=== PATIENT | female | born 1990 | race Caucasian/White ===

== ENCOUNTER 2017-03-11 09:22 | Inpatient (IN) | payer OTHER ==
[2017-03-11] VITALS (8 sets, daily range): BP systolic 105–145; BP diastolic 64–91; PULSE 40–48; RESP 18–20; TEMP 98–98.2
--- NOTE | 2017-03-11 10:05 | PD ---
HPI Chief Complaint Contractions Date Seen: Mar 11, 2017 Time Seen: 10:00 (Tommie Wade MD R1) Travel History International Travel<30 Days: No Contact w/Intl Traveler<30Days: No Known Affected Area: No (Tommie Wade MD R1) History of Present Illness HPI Patient is a 26-year-old at 37 weeks and 3 days who presents with contractions. She reports that she first started having irregular contractions last night every couple of hours. She reports that she was having contractions about every 10 minutes this morning. She denied any vaginal bleeding, leakage of fluid. She reports movement. Patient [facility] care through [facility]. Per her records, she is GBS negative. Of note, patient plans to give this child up for adoption. Para: 2 : 5 (Tommie Wade MD R1) History Past Medical History Narrative Medical History of UTI IVDU Possible Hepatitis C per EMR review Tetanus Vaccination: Unknown labs negative, including GBS (Tommie Wade MD R1) Obstetric History Obstetric History : 4, 3 terminations of Dilation and Curettage (D&C) Patient reports that her son was delivered at 36 weeks and her other child that she gave up for adoption was born at 37 and 38 weeks. (Tommie Wade MD R1) Past Surgical History Narrative Surgical Cholecystectomy: Yes (03/2009) Oral Surgery: Yes (WISDOM TEETH) (Tommie Wade MD R1) Family History Family History: Negative (Tommie Wade MD R1) Social History Narrative Social History Alcohol Use: No Tobacco Use: Yes (smokes a half a pack of cigarettes per day) Substance Use: HISTORY OF IV DRUG USE, last used 2 weeks ago. 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 Alcohol Use: No Tobacco Use: Yes Substance Abuse: Yes (Tommie Wade MD R1) Allergies-Medications (Allergen,Severity, Reaction): Coded Allergies: No Known Allergies (Verified , 03/09/17) Home Meds No Active Prescriptions or Reported Meds Review of Systems ROS Limitations: Clinical Condition (patient too uncomfortable to answer) ( Tommie Wade MD R1) Physical Exam Blood pressure 130s 140s over 70s to 90s, pulse 40, respiratory rate 18, temperature 98.0 Narrative GENERAL: Well-nourished, well-developed obese female patient who is diaphoretic and uncomfortable with contractions. SKIN: Warm and dry. HEAD: Normocephalic and atraumatic. EYES: No scleral icterus. No injection or drainage. ENT: No nasal drainage noted. Mucous membranes pink. Airway patent. NECK: Supple, trachea midline. No JVD. CARDIOVASCULAR: Regular rate and rhythm without murmurs, gallops, or rubs. RESPIRATORY: Breath sounds equal bilaterally. No accessory muscle use. ABDOMEN/GI: Abdomen soft, non-tender, bowel sounds present, no rebound, no guarding Gravid to 37 weeks size GENITOURINARY: External Genitalia: intact and normal in appearance Dilatation: 9-10 Effacement: 100% Station: 0 Presentation: Vertex Membranes: Intact Uterine Contractions: q 5 minutes FHT's: Category: Category Baseline: 140 Reactive: Reactive Variability: moderate Decels: Frequent variables EXTREMITIES: No cyanosis or edema. BACK: Nontender without obvious deformity. No CVA tenderness. NEUROLOGICAL: Awake and alert. Motor and sensory grossly within normal limits. Five out of 5 muscle strength in all muscle groups. Normal speech. (Tommie Wade MD R1) Data Data Vital Signs Reviewed: Yes Orders Ob (2e) Additional Admit Info (03/11/17 09:57) (Tommie Wade MD R1) MDM Plan Patient is a 26-year-old at 37 weeks and 3 days who presents with contractions. Patient had care through [facility]. Per her records, she is GBS negative. Of note, patient plans to give this child up for adoption. 1. active labor - patient presents diaphoretic and uncomfortable with contractions about every 5 minutes. Cervical exam is 9-10 cm dilated, 100% effaced, and 0 station. Admit for labor Monitor vital signs Monitor heart rate Nothing by mouth LR IV at 125 mL per hour Lidocaine, Bicitra, fentanyl IV GBS negative CBC, hold clot, ABO/Rh blood type, type and screen, UA 2. History of IVDU UDS Patient seen and discussed with Dr. Corrigan (Tommie Wade MD R1) Scripts No Active Prescriptions or Reported Meds Attestation Patient seen and evaluated with resident under direct supervision, agree with assessment and plan. (Noe Corrigan MD) Tommie Wade MD R1 Mar 11, 2017 10:05 Noe Corrigan MD Mar 11, 2017 16:24
[2017-03-11] MEDS ORDERED: LACTATED RINGER'S 1000 ML INJ 1,000 ML IV PRN (10:06)
[2017-03-11] MEDS ORDERED: LACTATED RINGER'S 1000 ML INJ 1,000 ML IV SCH (10:06)
[2017-03-11] MEDS ORDERED: SODIUM CHLORID 0.9% 500 ML INJ 500 ML IV PRN (10:15)
[2017-03-11] MEDS ORDERED: MINERAL OIL 10 ML VIAL TOPICAL PRN (10:15)
[2017-03-11] MEDS ORDERED: LIDOCAINE HCL 1% 50 ML VIAL INFIL PRN (10:15)
[2017-03-11] MEDS ORDERED: OXYTOCIN 30 UNITS-500ML PREMIX 500 ML IV ONE (10:15)
[2017-03-11] MEDS ORDERED: CITRIC ACID-SODIUM CITRATE LIQ 30 ML UDC PO SCH (10:15)
[2017-03-11] MEDS ORDERED: LIDOCAINE HCL 1% 50 ML VIAL I-DERMAL PRN (10:15)
[2017-03-11] MEDS ORDERED: SODIUM CHLOR 0.9% 1000 ML INJ 1,000 ML IV PRN (10:26)
--- NOTE | 2017-03-11 10:53 | PD.OB.DELI ---
Delivery Date: Mar 11, 2017 Anesthesia: None Episiotomy: None Vaginal Delivery: Normal, Spontaneous Presentation: Vertex Nuchal Cord: None Delayed cord clamping (45 sec): Yes : Female One Minute : 8 Five Minute : 9 Weight: 2315g Placenta: Spontaneous delivery, Intact, 3 vessel cord Laceration: No lacerations Estimated blood loss: 300mL Additional Information Patient presented to OB triage; she was 9-10 cm dilated at that time. (Cecilia Mays MD R1) Attestation Patient seen and evaluated with resident under direct supervision,I was present for this delivery . (Noe Corrigan MD) Cecilia Mays MD R1 Mar 11, 2017 10:53 Noe Corrigan MD Mar 11, 2017 16:18
[2017-03-11] MEDS ORDERED: OXYTOCIN 30 UNITS-500ML PREMIX 500 ML IV SCH (11:00)
[2017-03-11] MEDS ORDERED: ZOLPIDEM TARTRATE 5 MG TAB PO PRN (11:00)
[2017-03-11] MEDS ORDERED: ACETAMINOPHEN 325 MG TAB PO PRN (11:00)
[2017-03-11] MEDS ORDERED: IBUPROFEN 600 MG TAB PO PRN (11:00)
[2017-03-11] MEDS ORDERED: oxyCODONE/ACETAMINOPHEN 5 MG/325 MG TAB PO PRN (11:00)
[2017-03-11] MEDS ORDERED: ONDANSETRON ODT 4 MG TAB PO PRN (11:00)
[2017-03-11] MEDS ORDERED: BENZOCAINE 20% TOPICAL SPRAY 60 ML CAN TOPICAL PRN (11:00)
[2017-03-11] MEDS ORDERED: SODIUM CHLORIDE 0.9% FLUSH 10 ML FLUSH IV FLUSH PRN (11:00)
[2017-03-11] MEDS ORDERED: WITCH HAZEL 50%/GLYCERIN 12.5% 40 PAD JAR TOPICAL PRN (11:00)
[2017-03-11] MEDS ORDERED: SODIUM CHLORIDE 0.9% FLUSH 10 ML FLUSH IV FLUSH SCH (11:00)
[2017-03-11] MEDS ORDERED: ALUMINUM/MAGNESIUM/SIMETH 30 ML CUP PO PRN (11:00)
[2017-03-11] MEDS ORDERED: DOCUSATE SODIUM 50 MG/SENNA 8.6 MG TAB PO PRN (11:00)
[2017-03-11 11:10] LABS: AUTOMATED NEUTROPHIL # 9.2 TH/MM3 (1.8-7.7); BASOPHIL % 0.2 % (0.0-2.0); EOSINOPHIL # 0.2 TH/MM3 (0-0.4); EOSINOPHIL % 1.4 % (0.0-4.0); HEMO FLAGS DIFF FINAL; LYMPH % 21.1 % (9.0-44.0); LYMPHOCYTE # 2.7 TH/MM3 (1.0-4.8); MEAN CELL VOLUME 85.5 FL (80.0-100.0); MEAN CORPUSCULAR HEMOGLOBIN 28.6 PG (27.0-34.0); MEAN CORPUSCULAR HGB CONC 33.4 % (32.0-36.0); MONO % 6.4 % (0.0-8.0); NEUT % 70.9 % (16.0-70.0); PLATELET COUNT 175 TH/MM3 (150-450); RED BLOOD COUNT 3.74 MIL/MM3 (4.00-5.30); RED CELL DISTRIBUTION WIDTH 13.9 % (11.6-17.2)
[2017-03-11] MEDS: oxyCODONE/ACETAMINOPHEN 5 MG/325 MG TAB PO PRN ×2 (11:20→18:25)
[2017-03-11 11:23] LABS: BACTERIA, URINE OCC /hpf; BLOOD, URINE MOD (NEG); CALCIUM OXALATE CRYSTALS,URINE OCC /hpf; COMMENT (UR) CULTURE INDICATED; CULTURE IF INDICATED CULTURE INDICATED; GLUCOSE,URINE NEG (NEG); KETONE, URINE NEG (NEG); MUCUS URINE FEW /lpf (OCC); NITRITE,URINE NEG (NEG); PH, URINE 6.5 (5.0-8.5); SQUAMOUS EPITHELIAL CELL URINE 8 /hpf (0-5); URINE COLOR YELLOW (YELLW/STRAW)
[2017-03-11 12:53] LABS: AMPHETAMINE, URINE NEG (NEG); BARBITURATES, URINE NEG (NEG); COCAINE, URINE NEG (NEG)
[2017-03-11] MEDS ORDERED: MEASLES, MUMPS, RUBELLA VACCINE 0.5 ML VIAL SQ ONE (16:00)
[2017-03-11] MEDS ORDERED: DIPHTH/TETANUS/ACEL PERTUSSIS (BOOSTER) 0.5 ML VIAL/PFS IM ONE (16:00)
[2017-03-11] MEDS ORDERED: NITROFURANTOIN MONOHYD MACROCR 100 MG CAP PO SCH (18:00)
[2017-03-12 07:50] VITALS: BP 121/77; PULSE 54; RESP 16; TEMP 98.2
[2017-03-12] MEDS ORDERED: ORTH0.35 PO (09:22)
--- NOTE | 2017-03-12 09:22 | HHI.OB ---
Subjective Post Day: 1 Remarks Patient is a 26-year-old delivered at 37 weeks and 3 days. Patient is day 1 after . Patient's pain is well-controlled. Patient reports eating and drinking without any nausea or vomiting. Patient reports minimal bleeding. Patient has passed gas and bowel movements. Patient is walking without lower extremity pain or shortness of breath. Patient reports desire for contraception with OCPs until she can get her tubal ligation. She denies any feelings of depression. (Tommie Wade MD R1) Remarks Patient seen and evaluated with resident under direct supervision, agree with assessment and plan. (Noe Corrigan MD) Objective Vitals/I&O Vital Signs Date Time Temp Pulse Resp B/P Pulse Ox O2 Delivery O2 Flow Rate FiO2 03/12/17 07:50 98.2 54 16 121/77 03/11/17 20:04 20 121/77 03/11/17 20:04 98.2 03/11/17 13:25 98.0 03/11/17 13:25 48 18 105/68 03/11/17 11:46 45 145/75 03/11/17 11:21 40 133/64 03/11/17 11:06 43 136/75 03/11/17 11:05 98.0 03/11/17 10:45 18 03/11/17 10:43 47 144/91 Objective Remarks GENERAL: Well-nourished, well-developed patient. CARDIOVASCULAR: Regular rate and rhythm without murmurs, gallops, or rubs. RESPIRATORY: Breath sounds equal bilaterally. No accessory muscle use. ABDOMEN/GI: Abdomen soft, non-tender. Fundus: Firm, non-tender at umbilicus. GENITOURINARY: Light bleeding. EXTREMITIES: No cyanosis or edema, non-tender, without signs of DVT. Medications and IVs Current Medications Medications (Trade) Dose Ordered Sig/Vashti Route Start Time Stop Time Status Last Admin Lactated Ringer's 1,000 ml @ 125 mls/hr Q8H IV 03/11/17 10:06 03/11/17 10:56 Lactated Ringer's 1,000 ml @ 3,000 mls/hr Q20M PRN IV 03/11/17 10:06 Sodium Chloride 500 ml @ 1,000 mls/hr ONCE PRN IV 03/11/17 10:15 03/12/17 10:14 (NS 1000 ml Inj) 1,000 ml @ 100 mls/hr Q10H PRN IV 03/11/17 10:26 (Muri-Lube Oil) 10 ml UNSCH PRN TOPICAL 03/11/17 10:15 (NS Flush) 2 ml BID IV FLUSH 03/11/17 11:00 (NS Flush) 2 ml UNSCH PRN IV FLUSH 03/11/17 11:00 (Tylenol) 650 mg Q4H PRN PO 03/11/17 11:00 (Motrin) 600 mg Q6H PRN PO 03/11/17 11:00 (Percocet 5-325 Mg) 1 tab Q4H PRN PO 03/11/17 11:00 (Percocet 5-325 Mg) 2 tab Q4H PRN PO 03/11/17 11:00 03/11/17 18:25 (Americaine 20% Top Spr) 1 spray Q4H PRN TOPICAL 03/11/17 11:00 (Tucks Pads) 1 applic QID PRN TOPICAL 03/11/17 11:00 (Eliza-Colace) 2 tab Q12H PRN PO 03/11/17 11:00 (Ambien) 5 mg HS PRN PO 03/11/17 11:00 (Mag-Al Plus Susp Liq) 15 ml Q8H PRN PO 03/11/17 11:00 (Zofran Odt) 4 mg Q6H PRN PO 03/11/17 11:00 (Macrobid) 100 mg BIDPC PO 03/11/17 18:00 (Tommie Wade MD R1) Assessment/Plan Problem List: (1) (spontaneous vaginal delivery) (2) (normal spontaneous vaginal delivery) Assessment and Plan Patient is a 26-year-old delivered at 37 weeks and 3 days. Patient is day 1 after . Patient was counseled to do 6 weeks of pelvic rest. Patient was counseled to follow up in 6 weeks. Patient requested follow-up and contraception oral contraceptive pills. --AF VSS --Continue routine care --Motrin and Percocet when necessary for pain --Encourage OOB --Pelvic rest for 6 weeks will need follow-up appointment at that time. --Contraception: OCPs --Anticipate discharge tomorrow Discharge Planning Anticipate discharge tomorrow. (Tommie Wade MD R1) Tommie Wade MD R1 Mar 12, 2017 09:22 Noe Corrigan MD Mar 12, 2017 09:50
--- NOTE | 2017-03-12 12:30 | HHI.DCPOC ---
Discharge Care Plan Diagnosis: (1) (spontaneous vaginal delivery) Report Symptoms to Your Doctor -Temperature above 100.5 degrees -Redness, of incision or excessive or foul smelling drainage -Unusual pain or calf pain -Increased vaginal bleeding -Painful or difficulty urinating -Feelings of extreme sadness or anxiety after 2 weeks Goals to Promote Your Health * To prevent worsening of your condition and complications * To maintain your health at the optimal level Directions to Meet Your Goals Take your medications as prescribed Follow your dietary instruction Follow activity as directed Ensure plenty of rest for recovery Drink fluids for hydration Keep your appointments as scheduled Take your immunizations and boosters as scheduled If your symptoms worsen call your PCP, if no PCP go to Urgent Care Center or Emergency Room Smoking is Dangerous to Your Health. Avoid second hand smoke Call the 24-hour crisis hotline for domestic abuse at [place] Portillo MD Mar 12, 2017 12:30
[2017-03-15 14:10] LABS: HYDROMORPHONE U POS (NEG)
[2017-03-15 14:17] LABS: OBMETHADONE UR NEG (NEG); PHENCYCLIDINE URINE NEG (NEG)
[2017-03-15 14:18] LABS: BATH SALTS (MDPV) UR NEG (NEG); ECSTASY (MDMA) UR NEG (NEG); GABAPENTIN UR NEG (NEG); HEROIN (6-ACETYLMORPHINE) UR NEG (NEG); K2 SPICE UR NEG (NEG); OXYCODONE (PERCODAN) NEG (NEG)
== END 2017-03-12 12:40 | disposition home or self-care (01) | DRG 774 ==
LOC: HOBED 09:22 → H2EA 10:09 → H1EA 12:55
PROVIDERS: ADMIT Obstetrics & Gynecology Maternal & Fetal Medicine; ATTEND Obstetrics & Gynecology Maternal & Fetal Medicine
PROC: 10E0XZZ Delivery of Products of Conception, External Approach (ICD-10-PCS; principal; 2017-03-11)
DX: O99.324 Drug use complicating childbirth (principal); O75.3 Other infection during labor; O99.334 Smoking (tobacco) complicating childbirth; F11.90 Opioid use, unspecified, uncomplicated; F17.210 Nicotine dependence, cigarettes, uncomplicated; Z37.0 Single live birth; Z3A.37 37 weeks gestation of pregnancy
CPT/HCPCS: 80307; 81001; 85025; 86850; 86900; 86901; 87086; 90715; G0481; J2590; J7120

== ENCOUNTER 2017-04-28 14:10 | Emergency (ER) | payer OTHER ==
[~2017-04-28] VITALS: Ht 167.6 cm; Wt 95.0 kg
[~2017-04-28 14:10] MED LIST: ORTHTAB4 PO
[2017-04-28 14:12] VITALS: BP 135/85; PULSE 58; RESP 20; TEMP 98; O2SAT 99
[2017-04-28] MEDS ORDERED: NAPR500 PO (15:02)
--- NOTE | 2017-04-28 15:07 | PD ---
HPI Chief Complaint: Pain: Acute or Chronic Time Seen by Provider: 15:01 Travel History International Travel<30 days: No Contact w/Intl Traveler<30days: No Traveled to known affect area: No History of Present Illness HPI Patient comes in complaining of left knee swelling ongoing for 2 weeks. Patient states that this happens from time to time since she had surgery done several years ago and it usually goes away with rest. Patient states that the swelling is not getting any better. Patient has occasional pain with this that she's been taking Tylenol. Denies any radiation of the pain. Patient denies anything making it worse. Denies any trauma or . PFSH Past Medical History Genitourinary: Yes (UTI) Hepatitis: Yes (HEP C) ?: Not LMP: 04/21/17 : 5 Para: 0 Miscarriage: 0 : 4 Dilation and Curettage (D&C): Yes Past Surgical History Cholecystectomy: Yes (03/2009) Oral Surgery: Yes (WISDOM TEETH) Social History Alcohol Use: No Tobacco Use: Yes Substance Use: No (HISTORY OF IV DRUG USE, STOPPED 2007; marijuana 09/09) Allergies-Medications (Allergen,Severity, Reaction): Coded Allergies: No Known Allergies (Verified , 04/28/17) Reported Meds & Prescriptions Reported Meds & Active Scripts Active Naprosyn (Naproxen) 500 Mg Tab 500 Mg PO Q12HR PRN Review of Systems Except as stated in HPI: all other systems reviewed are Neg Physical Exam Narrative GENERAL: Well-developed, overly nourished, in no acute distress, and non-ill appearing. SKIN: Focused skin assessment warm and dry. HEAD: Atraumatic. Normocephalic. EYES: Pupils equal and round. EOMI. No scleral icterus. No injection or drainage. ENT: No nasal bleeding or discharge. Mucous membranes pink and moist. NECK: Trachea midline. Supple. No nuclear rigidity. RESPIRATORY: No accessory muscle use. No respiratory distress. MUSCULOSKELETAL: No obvious deformities. No clubbing. No cyanosis. No edema. Full range of motion. Knee: Negative patellar apprehension, varus and valgus maneuvers, anterior draw test, and Rolly test. FROM distal to injury and equal BL. Strength distal to injury equal BL. NV intact distal to injury. Dorsal pulses equal BL. Sensation equal BL 1st web space. Small fluid collection left knee medial aspect. There is no crepitus, erythematous, or other signs of infection. NEUROLOGICAL: Awake and alert. No obvious cranial nerve deficits. Motor grossly within normal limits. Normal speech. PSYCHIATRIC: Appropriate mood and affect; insight and judgment normal. Data Data Last Documented VS Vital Signs Date Time Temp Pulse Resp B/P (MAP) Pulse Ox O2 Delivery O2 Flow Rate FiO2 04/28/17 14:12 98.0 58 20 135/85 (102) 99 Room Air Orders Orders Splint Or Brace Apply/Monitor (04/28/17 15:01) MDM Medical Decision Making Medical Screen Exam Complete: Yes Emergency Medical Condition: Yes Differential Diagnosis Bursitis, effusion, infectious bursitis, gout, pseudogout, other Narrative Course There is no evidence to suggest infectious bursitis at this time. There is no trauma to suspect contusion, strain, or fracture. There is no clinical evidence to suggest gout or pseudogout, osteoarthritis, Rheumatoid arthritis, or septic arthritis. There is also no evidence to suggest tendonitis. The patient was placed in an Lukasz wrap and started on NSAID medication. The patient was instructed on ice packs as well. The patient was instructed to follow up with orthopedics for possible drainage versus injections. The patient agreed with plan. Patient in no obvious distress upon re-evaluation. Patient was asked if they wanted to speak to my attending, which the patient did not wish to do at this time. Any questions/concerns in reference to patient diagnosis/condition discussed and clarified prior to patient's discharge. Reinforced sheer importance of close follow up with patient's primary physician or primary care clinic. Instructed patient to return to ED immediately, if symptoms return/ worsen. Pt showed understanding of above instructions. Further instructions and recommendations were detailed in discharge paperwork. Pt ambulated without difficulty out of ED at discharge. Diagnosis Primary Impression: Knee effusion, left Referrals: Hayden Davila MD Patient Instructions: General Instructions, Swollen Knee Joint (ED) Additional Instructions: Follow-up with your primary care physician and/or orthopedics next week for reevaluation. Take all medication as prescribed. Wear Lukasz wrap for comfort and treatment. Apply ice to affected area 20 minutes per hour his needed for pain and swelling. Return to the emergency department if symptoms get worse. Med/Other Pt SpecificInfo: Prescription(s) given Scripts Naproxen (Naprosyn) 500 Mg Tab 500 MG PO Q12HR Y for PAIN SCALE 1 TO 10, #14 TAB 0 Refills Prov: Nita Catalan MD 04/28/17 Disposition: 01 DISCHARGE HOME Condition: Stable Rashel Ding Apr 28, 2017 15:07
== END 2017-04-28 15:29 | disposition home or self-care (01) ==
LOC: EDTENT 14:10
DX: M25.462 Effusion, left knee (principal); B19.20 Unspecified viral hepatitis C without hepatic coma; Z72.0 Tobacco use
CPT/HCPCS: 99283

== ENCOUNTER → 2017-05-13 | Day surgery (SDC) | payer OTHER ==
--- NOTE | 2017-05-11 16:18 | MH ---
cc: PHYLLIS TALLEY MD, SUE GREENBLUM, JESSE S. MD DATE OF 1990 DATE OF ADMISSION: 05/13/2017 ADMITTING DIAGNOSIS: Scheduled for admission on 05/13 for laparoscopic salpingectomy / tubal ligation. HISTORY: The patient's is a 27-year-old white female 3, para 3 who has completed childbearing and wants to proceed with surgical sterilization. PAST MEDICAL HISTORY: The patient's medical history depression. Otherwise negative for heart, lung, liver disease, hypertension, diabetes, stroke. PAST SURGICAL HISTORY Laparoscopic cholecystectomy. OBSTETRICAL HISTORY Three vaginal deliveries. GYNECOLOGIC HISTORY No STDs or abnormal Pap smears. SOCIAL HISTORY Smokes a pack a day. No alcohol or drugs. FAMILY HISTORY Noncontributory MEDICATIONS Oral contraceptive daily ALLERGIES None REVIEW OF SYSTEMS No chest pain, orthopnea, PND, nausea, fever, chills. No vaginal bleeding or discharge. No change in bladder, bowel habits. Remainder of 14-point review negative. PHYSICAL EXAMINATION: VITAL SIGNS: On exam afebrile signs stable blood pressure is 120/76 05/06 weight 212, BMI is 34. IN GENERAL: Patient is alert and oriented, no acute distress no sign of cognitive function depression. HEAD, EYES, EARS, NOSE, AND THROAT: Within normal limits. NECK: The neck is supple. No jugular venous distention. CHEST: The chest is clear. HEART: Regular rate and rhythm. ABDOMEN: The abdomen is soft, nontender, no hepatosplenomegaly. No CVA tenderness. PELVIC: The pelvic exam will be detailed under anesthesia. EXTREMITIES: Normal skin, no rashes and nonfocal. No deep venous thrombosis signs. ASSESSMENT Patient with multiparity desires sterilization. DISCUSSION: Discussed options for management treatment. She is aware of the risks returns procedure including damage to surrounding organs, bleeding, infection, failure rate of up to 1:200. The irreversibility procedure, infertility following procedure. Operative risks, pelvic pain and other issues germane to procedure. PLAN: Patient has made informed choice to proceed her Medicaid tubal consent form was signed on March 28. We anticipate outpatient procedure. She needs DVT prophylaxis with sequential compression device and antibiotic prophylaxis Ancef 2 grams. MD MASOUD Panda/shayne /1:56 PM /4:09 PM
[~2017-05-13] VITALS: Ht 167.6 cm; Wt 101.6 kg
[~2017-05-13] MED LIST changes: +*MEPERIDINE 25 MG INJ VIAL PERIprocedural Use ONLY ONE; +*morphine SULFATE 8 MG/ML PERIprocedure ONLY ONE; +ACETAMINOPHEN 1000 MG/100 ML 0 ML IV ONE; +ACETAMINOPHEN 1000 MG/100 ML 100 ML IV ONE; +CHLORHEXIDINE GLUCONATE 2 % 1 PACK (2 CLOTHS) TOPICAL PRN; +DEXAMETHASONE SOD PHOS 4 MG/ML VIAL IV ONE; +DEXAMETHASONE SOD PHOS 4 MG/ML VIAL ONE; +DO NOT ADM ANY ANTICOAGULANT DRUGS PRN; +FAMOTIDINE 20 MG/2 ML VIAL ONE; +INSULIN HUMAN REGULAR 1,000 UNITS/10 ML VIAL SQ PRN; +KETOROLAC TROMETHAMINE 30 MG/ML (IVP) VIAL IV PUSH ONE; +KETOROLAC TROMETHAMINE 30 MG/ML (IVP) VIAL IV PUSH PRN; +KETOROLAC TROMETHAMINE 60 MG/2 ML (IM) VIAL IM PRN; +LACTATED RINGER'S 1000 ML IV PRN; +LIDOCAINE 0.5%/EPINEPHrine 1:200,000 SOLN 50 ML VIAL ONE; +LIDOCAINE HCL 1% PF 5 ML AMPULE OTHER ONE; +METOPROLOL TARTRATE 25 MG TAB PO PRN; +MIDAZOLAM HCL 2 MG/2 ML VIAL IV ONE; +MIDAZOLAM HCL 2 MG/2 ML VIAL ONE; +NAPR500 PO; +ONDANSETRON HCL 4 MG/2 ML VIAL IV PUSH ONE; +ONDANSETRON HCL 4 MG/2 ML VIAL IV PUSH PRN; -ORTHTAB4 PO; +POVIDONE IODINE 5% (ANTISEPSIS KIT) 4 APPLICATIONS EACH NARE PRN; +PROPOFOL 200 MG/20 ML AMP IV ONE; +ROCURONIUM INJ 50 MG/5 ML SYRINGE IV PUSH ONE; +SODIUM CHLORID 0.9% 500 ML IV PRN; +SUCCINYLCHOLINE CHLORIDE 100 MG/5 ML SYRINGE IV PUSH ONE; +ceFAZolin 2 GM PREMIX 50 ML IV SCH; +ePHEDrine/NS 25 MG/5 ML SYR IV ONE; +traMADol HCL 50 MG TAB PO PRN
--- NOTE | 2017-05-13 11:15 | PD.OP ---
Operative Report Date of Surgery: May 13, 2017 Preoperative Diagnosis: DESIRES STERILIZATION Postoperative Diagnosis: DESIRES STERILIZATION ADHESIONS OF TUBES TO SIDEWALLS Procedure: LAPAROSCOPIC BILATERAL SALPINGECTOMY Anesthesia: GETA/OGT Surgeon: Eddie Raygoza Class B Truck Driver(s): HMX X1 Operation and Findings: SEE DICTATED NOTE Eddie Raygoza MD May 13, 2017 11:15
[2017-05-13 11:50] VITALS: BP 128/75; PULSE 52; RESP 20; TEMP 98.2; O2SAT 97
--- NOTE | 2017-05-13 21:03 | MP ---
cc: PHYLLIS TALLEY SUE DR. GREENBLAUM, DATE OF SURGERY 05/13/17 PREOPERATIVE DIAGNOSES Multiparity, desires sterilization. POSTOPERATIVE DIAGNOSES Multiparity, desires sterilization with adhesions of tubes to pelvic sidewall. PROCEDURE Laparoscopic bilateral salpingectomy. 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 Pop Q score Aa is -1, Ap is -1, point C is -8, total vaginal length is 10. General hiatus is eight. Perineal body is four. Uterus is mobile, anteverted and flexed. Ovaries are normal. Tubes are long with paratubal cyst distally and small mild to moderate adhesions with the bowel and pelvic sidewall. Upper abdomen normal considering history of cholecystectomy. SPECIMENS Right and left tubes. COMPLICATIONS None DISPOSITION Recovery room stable COUNTS Needle and sponge count correct. DRAINS Rucker catheter. PROPHYLAXIS Antibiotic prophylaxis Ancef 2 grams, DVT prophylaxis sequential compression device. Time-out procedure per protocol SUMMARY OF INDICATION FOR PROCEDURE Patient with desire for sterilization. PROCEDURE IN DETAIL She was taken to the operative theater. Prepped and draped in fashion appropriate for procedure. She was in dorsal lithotomy position with careful attention paid to placement of legs in stirrups to avoid undue stress to sensitive neurovascular structures. Above findings noted. Neurovascular documented. Rucker catheter was placed. Umbilicus infiltrated with epinephrine and Lidocaine solution. A 5-mm incision was made and a 5-mm scope was placed in direct visualization. Above findings noted. There is no damage to bowel intra-abdominal contents with entry of the trocar. Auxiliary trocars were placed 8 mm at suprapubic area and the 5 mm in the left lower quadrant, all done under direct visualization without complication. Tubes were identified. They were somewhat long and hydroptic with some adhesions. Decision was made to perform salpingectomy. This was done with [employer] energy in a standard fashion coming across the mesosalpinx and removing the tube at the cornu without complication. This was done on each side without complication and we had good hemostasis with and without gas pressure. Pelvis inspected. Trocar sites inspected. No damage to bladder or bowel. Procedure was concluded. Incisions were closed with a 0 Vicryl at the umbilicus and 4-0 Monocryl at the auxiliary port sites. The patient to recovery room in stable condition. MD MASOUD Panda/ /11:25 AM /8:44 PM
== END | disposition home or self-care (01) ==
LOC: HSDC 07:26
PROVIDERS: ATTEND Obstetrics & Gynecology Gynecology
DX: Z30.2 Encounter for sterilization (principal); N73.6 Female pelvic peritoneal adhesions (postinfective); F17.210 Nicotine dependence, cigarettes, uncomplicated
CPT/HCPCS: 00840; 58661; 88302; J0131; J0330; J0690; J1100; J1885; J2175; J2250; J2270; J2405; J3010; J7120

== ENCOUNTER 2017-08-07 13:01 | Emergency (ER) | payer OTHER ==
[~2017-08-07] VITALS: Ht 167.6 cm; Wt 100.0 kg
[~2017-08-07 13:01] MED LIST changes: -*MEPERIDINE 25 MG INJ VIAL PERIprocedural Use ONLY ONE; -*morphine SULFATE 8 MG/ML PERIprocedure ONLY ONE; -ACETAMINOPHEN 1000 MG/100 ML 0 ML IV ONE; -ACETAMINOPHEN 1000 MG/100 ML 100 ML IV ONE; -CHLORHEXIDINE GLUCONATE 2 % 1 PACK (2 CLOTHS) TOPICAL PRN; -DEXAMETHASONE SOD PHOS 4 MG/ML VIAL IV ONE; -DEXAMETHASONE SOD PHOS 4 MG/ML VIAL ONE; -DO NOT ADM ANY ANTICOAGULANT DRUGS PRN; -FAMOTIDINE 20 MG/2 ML VIAL ONE; -INSULIN HUMAN REGULAR 1,000 UNITS/10 ML VIAL SQ PRN; -KETOROLAC TROMETHAMINE 30 MG/ML (IVP) VIAL IV PUSH ONE; -KETOROLAC TROMETHAMINE 30 MG/ML (IVP) VIAL IV PUSH PRN; -KETOROLAC TROMETHAMINE 60 MG/2 ML (IM) VIAL IM PRN; -LACTATED RINGER'S 1000 ML IV PRN; -LIDOCAINE 0.5%/EPINEPHrine 1:200,000 SOLN 50 ML VIAL ONE; -LIDOCAINE HCL 1% PF 5 ML AMPULE OTHER ONE; -METOPROLOL TARTRATE 25 MG TAB PO PRN; -MIDAZOLAM HCL 2 MG/2 ML VIAL IV ONE; -MIDAZOLAM HCL 2 MG/2 ML VIAL ONE; -ONDANSETRON HCL 4 MG/2 ML VIAL IV PUSH ONE; -ONDANSETRON HCL 4 MG/2 ML VIAL IV PUSH PRN; -POVIDONE IODINE 5% (ANTISEPSIS KIT) 4 APPLICATIONS EACH NARE PRN; -PROPOFOL 200 MG/20 ML AMP IV ONE; -ROCURONIUM INJ 50 MG/5 ML SYRINGE IV PUSH ONE; -SODIUM CHLORID 0.9% 500 ML IV PRN; -SUCCINYLCHOLINE CHLORIDE 100 MG/5 ML SYRINGE IV PUSH ONE; -ceFAZolin 2 GM PREMIX 50 ML IV SCH; -ePHEDrine/NS 25 MG/5 ML SYR IV ONE; -traMADol HCL 50 MG TAB PO PRN
[2017-08-07 13:02] VITALS: BP 136/82; PULSE 81; RESP 16; TEMP 98.3; O2SAT 99
[2017-08-07] MEDS ORDERED: NABU1TAB37 PO (14:03)
--- NOTE | 2017-08-07 14:40 | PD ---
HPI . Foot pain Chief Complaint: Pain: Acute or Chronic Time Seen by Provider: 13:52 Travel History International Travel<30 days: No Contact w/Intl Traveler<30days: No Traveled to known affect area: No History of Present Illness HPI This patient presents with a chief complaint of left foot pain. It is atraumatic. Onset was about 3 days ago. Pain is exacerbated by standing on her foot. Pain is rated 10/10. Pain has been unrelieved subtherapeutic dosing of Tylenol and ibuprofen. PFSH Past Medical History Cancer: No Cardiovascular Problems: No Diabetes: No Endocrine: No Genitourinary: Yes (UTI) Hepatitis: Yes (HEP C) Hiatal Hernia: No Immune Disorder: No Musculoskeletal: No Neurologic: No Psychiatric: No Reproductive: No Respiratory: No Thyroid Disease: No Influenza Vaccination: No ?: Unknown LMP: 07/18/17 : 5 Para: 0 Miscarriage: 0 : 4 Dilation and Curettage (D&C): Yes Past Surgical History Abdominal Surgery: Yes (gallbladder) AICD: No Cardiac Surgery: No Cholecystectomy: Yes (03/2009) Ear Surgery: No Endocrine Surgery: No Eye Surgery: No Genitourinary Surgery: No Gynecologic Surgery: No Joint Replacement: No Oral Surgery: Yes (WISDOM TEETH) Pacemaker: No Thoracic Surgery: No Other Surgery: Yes Social History Alcohol Use: No Tobacco Use: Yes Substance Use: No (HISTORY OF IV DRUG USE, STOPPED 2007; marijuana 09/09) Allergies-Medications (Allergen,Severity, Reaction): Coded Allergies: No Known Allergies (Verified Adverse Reaction, Unknown, 08/07/17) Reported Meds & Prescriptions Reported Meds & Active Scripts Active Nabumetone 500 Mg Tab 500 Mg PO BID Naprosyn (Naproxen) 500 Mg Tab 500 Mg PO Q12HR PRN Review of Systems Except as stated in HPI: all other systems reviewed are Neg Physical Exam Narrative GENERAL: Awake and alert and in no acute distress. SKIN: Warm and dry. Normal color. HEAD: Normocephalic/atraumatic. EYES: Pupils are equal. Extraocular movements are intact. NECK: Normal range of motion. CARDIOVASCULAR: Regular rate and rhythm. RESPIRATORY: Nonlabored respirations. MUSCULOSKELETAL: She has diffuse tenderness to palpation of the plantar aspect of the left foot. I am unable to elicit point tenderness in the heel. No other abnormalities were noted. She has good capillary refill. There is no redness or warmth of the skin. NEUROLOGICAL: Nonfocal. PSYCHIATRIC: Appropriate mood and affect. Data Data Last Documented VS Vital Signs Date Time Temp Pulse Resp B/P (MAP) Pulse Ox O2 Delivery O2 Flow Rate FiO2 08/07/17 14:17 08/07/17 13:18 17 08/07/17 13:02 98.3 81 99 Orders Orders Ed Discharge Order (08/07/17 14:04) [facility] Medical Decision Making Medical Screen Exam Complete: Yes Emergency Medical Condition: Yes Differential Diagnosis Differential diagnosis includes but is not limited to plantar fasciitis, cellulitis, fracture Narrative Course Patient presents with atraumatic left plantar foot pain. The only physical exam finding is diffuse tenderness to palpation of the plantar foot. She'll be discharged home with a prescription for Relafen and a referral to a core shaper. Diagnosis Primary Impression: Left foot pain Referrals: Irvin Burks DPM Patient Instructions: General Instructions Departure Forms: Work Release, Enter return to work date: Aug 09, 2017 Tests/Procedures Scripts Nabumetone (Nabumetone) 500 Mg Tab 500 MG PO BID for Pain-Inflammation, #60 TAB 0 Refills Prov: Jackie Peraza MD 08/07/17 Disposition: 01 DISCHARGE HOME Condition: Stable Jackie Peraza MD Aug 07, 2017 14:40
== END 2017-08-07 14:17 | disposition home or self-care (01) ==
LOC: NEPD 13:01
DX: M79.672 Pain in left foot (principal); Z72.0 Tobacco use
CPT/HCPCS: 99283